=== PATIENT | male | born 1970 | race Hispanic/Latino ===

== ENCOUNTER 2024-11-18 15:35 | Emergency (ER) | payer SELFPAY ==
[2024-11-18] VITALS (10 sets, daily range): BP systolic 113–180; BP diastolic 60–120; PULSE 65–90; RESP 16–18; TEMP 36.6–36.7; O2SAT 95–100
--- NOTE | ~2024-11-18 | CT_ITS ---
CT brain wo con Ordering provider: Emmanuel Montoya MD History: 54 years Male with . AMS, ETOH? . Comparison: None. Technique: CT of the head without contrast. Radiation reduction technique utilized.The dose-length pr oduct was 627.45 mGy-cm. FINDINGS: Artifacts are seen at the posterior fossa area. BRAIN PARENCHYMA AND CSF SPACES: No midline shift, mass effect or hemorrhage. The brain parenchyma a nd CSF spaces are otherwise normal. VISUALIZED PARANASAL SINUSES: Well aerated. MASTOIDS: Well aerated. BONES: Bilateral ethmoid sinus disease. The bones appear intact. SOFT TISSUES: Visualized nasopharynx is normal. Superficial soft tissues are normal. IMPRESSION: No acute intracranial findings. Reviewed, dictated and finalized at location A.
--- NOTE | 2024-11-18 15:39 | ECG_ITS ---
Test Date: 2024-11-18 16:27:44 Measurements Intervals [employer] Rate: 92 P: 60 SD: 166 QRS: 11 QRSD: 118 T: 48 QT: 368 QTc: 457 Interpretive Statements SINUS RHYTHM MODERATE INTRAVENTRICULAR CONDUCTION DELAY [110+ ms QRS DURATION] No previous ECG available for comparison Electronically Signed On 11-18-2024 21:56:46 CDT by Terry Ricardo M.D.
--- NOTE | 2024-11-18 15:48 | ED.ALCOHOL ---
HPI - Alcohol General Chief Complaint: Alcohol Stated Complaint: etoh, agitation History of Present Illness HPI narrative: 54-year-old male presenting to the emergency department in police custody for suspected intoxication and disorderly behavior. Patient initially was found at a semi-truck. Operating motor vehicle and when he got out and was urinating on the ground EMS was called because patient was stumbling around slurring his speech looking intoxicated. Patient refused treatment at that time and went to [facility] where he became unresponsive requiring sternal rub and at that point became very agitated, spitting, cursing and finding staff. Patient was restrained and placed into a spit wheeler and given intramuscular Versed EN route. Patient transport to the emergency department for evaluation. Patient is presently sedated and intoxicated and not able to provide collateral formation. Reportedly he speaks Romanian and does understand [place] and speaks slight [place] but presently not able to be communicated with secondary to intoxication and sedation. He is in 4 point restraints, spit mask in place, in police custody with officer at bedside. No obvious signs of trauma, no signs of visible injury. Related Data Allergies Allergy/AdvReac Type Severity Reaction Status Date / Time Unable to Assess Allergy Verified 11/18/24 15:57 Review of Systems Review of Systems: ROS unobtainable: Yes unobtainable due to medical condition and unobtainable due to mental status Exam Narrative: GENERAL: Intoxicated, sedated, in 4 point restraints, not any acute distress, awake HEAD: [Normocephalic, atraumatic.] EYES: [PERRLA and EOMI.] ENT: Nares clear, no rhinorrhea or epistaxis. Mucous membranes moist. NECK: Supple. CHEST: [Clear to auscultation. No respiratory distress.] HEART: [Regular rate and rhythm]. No murmur heard. [Normal peripheral pulses.] ABDOMEN: [Soft, nondistended], [nontender], [No rigidity or guarding] EXTREMITIES: Normal range of motion. [No edema.] SKIN: Warm, dry, no rash. NEURO: [No focal deficits]. Alert and oriented [x3.] PSYCH: [Normal mood and affect.] Course Vital Signs Vital signs: Vital Signs Pulse Rate 72 11/18/24 15:35 Respiratory Rate 18 11/18/24 15:35 Blood Pressure 136/61 11/18/24 15:35 Pulse Oximetry 100 11/18/24 15:35 Temperature 36.4 C L 11/19/24 01:59 Pulse Rate 73 11/19/24 01:59 Respiratory Rate 16 11/19/24 01:59 Blood Pressure 157/82 H 11/19/24 01:59 Pulse Oximetry 98 11/19/24 01:59 MDM - Alcohol MDM Narrative Medical decision making narrative: 54-year-old male, history of frequent DUIs according to police presenting in police custody for suspected alcohol intoxication. He went to fdc after being picked up at a truck stop after EMS was called and refused. Patient went unresponsive at the [facility] requiring sternal rub where he woke up and became agitated and combative and belligerent. No Narcan was provided and there was no signs of trauma. Patient is presently sedated and intoxicated, not answering questions but is awake and moving all extremities. He is in 4 point restraints. Spit mask in place and police are at bedside. Suspicion presently is for profound alcohol intoxication versus drug use versus less likely metabolic disorder or intracranial pathology such as a stroke or bleed. Given that he is not able to provide collateral formation we will go on the assumption that he is intoxicated but also work him up for other causes. CBC, CMP, urinalysis, urine drug screen, alcohol level, toxicological panel, CT of the head was obtained. Patient placed on monitor and re-evaluated frequently. Presently not any acute distress and has no visible signs of trauma. Patient required 5 mg of IM Haldol for additional restraint after Versed from EMS. Workup shows no leukocytosis or anemia. Normal platelet count. Electrolytes show some dehydration likely secondary to his alcohol intake. Does have an elevated sodium and chloride as well as a minor elevated anion gap secondary to starvation ketosis and alcoholic ketoacidosis. Normal creatinine, normal glucose, normal LFTs. TSH is normal. Urinalysis is normal without infection or blood. Toxicological screening showed no salicylates Tylenol but he does have alcohol level 333. Urine drug screen pending. Patient required additional chemical restraints with 10 mg of intramuscular Zyprexa given significant agitation but he was able to be taken out of restraints. His CT scan of the head shows no acute findings. Patient is still belligerent and intoxicated, police have issued citations and left. They request we contact them prior to discharge for them to arrest him. Patient given a L of LR for his dehydration and will be re-evaluated until sobriety. Patient has been observed here in the emergency department for almost 10 hours. He is clinically sober on my frequent re-evaluations and ambulating around the room. He is no longer agitated or combative in very easily converses in [place]. He is requesting a assembler for puller over hand for his phone and some clothing. Patient did receive IV hydration and has no concerning findings on his repeat evaluations and likely he was very belligerent from alcohol intoxication. Clinically sober and walking in a straight line without any deficits. We did call the police department who stated that they will not be coming back to the hospital to arrest him and that he is free to go and already got a citation. Patient was discharged at this time with instructions on alcohol cessation. Medical Records Attestation: I reviewed the patient's medical records. Lab Data Attestation: I reviewed the patient's lab results. 11/18/24 16:04 11/18/24 16:04 Labs: Lab Results 11/18/24 Range/Units 16:04 WBC 5.2 (4.5-10.0) K/mm3 RBC 4.72 (4.6-6.20) M/mm3 Hgb 14.6 (14.0-18.0) g/dL Hct 43.9 (42.0-52.0) % MCV 93.0 (80-100) fl MCH 30.9 (26-34) pg MCHC 33.3 (32-36) g/dl RDW 13.5 (11.5-14.5) % Plt Count 217 (150-375) k/mm3 MPV 9.0 (7.4-10.4) fl Immature Gran % (Auto) 0.4 (0-0.5) % Neut % (Auto) 62.4 (45.5-73.1) % Lymph % (Auto) 32.1 (18.3-44.2) % [place] % (Auto) 3.5 (2.6-8.5) % Eos % (Auto) 1.2 (0-4.4) % Baso % (Auto) 0.4 (0.2-1.2) % Lymph # (Auto) 1.67 (0.9-3.2) K/mm3 [place] # (Auto) 0.2 (0.1-0.6) K/mm3 Eos # (Auto) 0.1 (0-0.3) K/mm3 Baso # (Auto) 0.0 (0.0-0.1) K/mm3 Abs Immat Gran (auto) 0.02 (0.00-0.031) K/mm3 Absolute Neuts (auto) 3.3 (1.3-6.7) K/mm3 Absolute Nucleated RBC 0.000 (0.0-0.012) K/mm3 Nucleated RBC % 0.0 (0.0-0.2) % Sodium 150 H (137-145) mmol/L Potassium 3.9 (3.4-5.0) mmol/L Chloride 114 H (98-107) mmol/L Carbon Dioxide 20 L (22-30) mmol/L Anion Gap 16 H (4-12) mmol/L BUN 8 L (9-20) mg/dL Creatinine 0.82 (0.7-1.3) mg/dL Estim Creat Clear Calc Not Reportable Estimated GFR > 60 (59 - ) Glucose 120 H (65-110) mg/dL Calcium 8.2 L (8.4-10.2) mg/dL Total Bilirubin 0.3 (0.2-1.3) mg/dL AST 39 (17-59) U/L ALT 34 (6-50) U/L Alkaline Phosphatase 70 (38-126) U/L Total Protein 8.0 (6.3-8.2) g/dL Albumin 4.6 (3.5-5.1) g/dL TSH 0.590 (0.465-4.680) uIU/mL Urine Color Yellow (Yellow) Urine Appearance Clear (Clear) Urine pH 5.0 (5.0-9.0) Ur Specific [place] 1.007 (1.001-1.035) Urine Protein Negative (Negative) mg/dL Urine Glucose (UA) Negative (Negative) mg/dL Urine Ketones Negative (Negative) mg/dL Ur Blood (Man) Negative (Negative) Urine Nitrate Negative (Negative) Urine Bilirubin Negative (Negative) Urine Urobilinogen 0.2 (<2.0) mg/dL Leukocyte Esterase Rfl Negative (Negative) ANA/UL Salicylates < 1.0 L (2-20) mg/dL Urine Opiates Screen Negative (Negative) Urine Methadone Screen Negative (Negative) Acetaminophen < 10 L (10-30) ug/mL Ur Barbiturates Screen Negative (Negative) Ur Phencyclidine Scrn Negative (Negative) Ur Amphetamine Screen Negative (Negative) U Benzodiazepines Scrn Negative (Negative) Urine Cocaine Screen Negative (Negative) U Cannabinoids Screen Negative (Negative) Ethyl Alcohol 333 H* (<10) mg/dL Imaging Data Attestation: I personally reviewed and interpreted this imaging study as follows: My impression: Impressions Head CT 11/18/24 17:45 IMPRESSION: No acute intracranial findings. Radiologist's impression: ITS Impressions Head CT 11/18/24 17:45 IMPRESSION: No acute intracranial findings. Critical Care Time Critical Care Time Critical Care Time: Yes Total Critical Care Time: 45 Restraint Face to Face Eval ED Reason for Restraint Aggressive/Violent Evaluation Findings Date Seen by EDP: 11/18/24 Time Seen by EDP: 15:35 Pt's immediate situation:: Brought in by police for intoxication and belligerent behavior as well as altered mental status. Agitated and combative, spit guard in place, spitting at staff, urinating on himself, requiring multiple police officers for restraints Pt's reaction to intervention:: Calmed down with intramuscular Versed and restraints Pt's med/behavioral condition:: Agitated and combative, spitting, urinating, not cooperative with history or examination, aggressive and verbally loud Restraint or Seclusion Need Need to continue or terminate:: Restraints and in place until patient is cooperative and calm, currently required secondary to significant agitation and belligerent behavior. 1725: Patient re-evaluated after chemical restraint and calm down. Restraints were able to be removed. Discharge Plan Discharge Clinical Impression: Alcoholic intoxication, Agitation, Dehydration Patient Disposition: Home Condition: Stable Instructions: Antibiotic Form, Alcohol Intoxication (ED), Abuse of Alcohol (ED) Additional Instructions: Refrain from drinking any alcohol. You were slightly dehydrated, maintain good oral hydration with water or electrolytes. Follow-up with your regular doctor. Return with any emergent concerns. Do not operate motor vehicles while intoxicated. Patient Language: [place] Follow-up/Referrals: UNKNOWN,DOCTOR [Primary Care Provider] - Time of Disposition: 01:28
[2024-11-18] MEDS: HALOPERIDOL LACTATE 5 MG/ML VIAL IM (15:59)
[2024-11-18 16:18] LABS: Add Urine Microscopic? NO; Appearance Urine Clear (Clear); Bilirubin Urine Negative (Negative); Blood Urine Negative (Negative); Color Urine Yellow (Yellow); Glucose Urine UA Negative (Negative); Ketones Urine Negative (Negative); Leukocyte Esterase Ur Negative LEU/UL (Negative); Nitrate Urine Negative (Negative); Protein Urine Negative (Negative); Specific Grav Ur 1.007 (1.001-1.035); Urobilinogen Urine 0.2 mg/dL (<2.0)
[2024-11-18 16:20] LABS: Basophils Percent Auto 0.4 % (0.2-1.2); Eosinophils Absolute Auto 0.1 K/mm3 (0-0.3); Eosinophils Percent Auto 1.2 % (0-4.4); Hematocrit 43.9 % (42.0-52.0); Hemoglobin 14.6 g/dL (14.0-18.0); Immature Granulocyte Absolute 0.02 K/mm3 (0.00-0.031); Immature Granulocyte Percent A 0.4 % (0-0.5); Lymphocytes Absolute Auto 1.67 K/mm3 (0.9-3.2); Lymphocytes Percent Auto 32.1 % (18.3-44.2); Mean Corpuscular HGB Conc 33.3 g/dl (32-36); Mean Corpuscular Hemoglobin 30.9 pg (26-34); Monocytes Absolute Auto 0.2 K/mm3 (0.1-0.6); Monocytes Percent Auto 3.5 % (2.6-8.5); Neutrophils Absolute Auto 3.3 K/mm3 (1.3-6.7); Neutrophils Percent Auto 62.4 % (45.5-73.1); Platelet Count Result 217 k/mm3 (150-375); Red Blood Count 4.72 M/mm3 (4.6-6.20); Red Cell Distribution Width 13.5 % (11.5-14.5); White Blood Count 5.2 K/mm3 (4.5-10.0)
--- OUTSIDE RECORDS SUMMARY | 2024-11-18 16:33 | XMS_ITS ---
Author Organization [facility] Address [address] [place] [address] Care Team Providers Care Intelligence Analyst Name Role Phone Yaya Solorio Jr Unavailable REASON FOR VISIT referral Encounters Encounter Location Date Provider [place] [facility] [place] [address] [place] [address] [place]/18/2023 Yaya Solorio Plan Of Treatment No Information Progress Notes * Yemi LEWISiDOB:08/1969 (54 yo M)Acc No.[id number]:08/18/2023 Progress Notes Patient: Carolina SHERlobitokasey Provider: Deo Valadez Jr., MD :1970 A ge:53 Y S ex:Male Date:08/18/2023 Address:[address] [place], [place] [id number] Subjective: * Chief Complaints: * 1 . Referral. * HPI: I nterim Care: Have you been to the ER since your last visit? c c 16 Have you been to ER since your last visit? N o Have you been hospitalized since your last visit? H ave you ever been hospitalized since the last visit? N o Have you seen a specialist since your last visit? H ave you seen a specialist since your last visit? N o Have you had any major tests/imaging/procedures done elsewhe? H ave you had any major imaging or procedures doen elsewhere? N o Has there been ANY medication change since your last visit H as there been any medication change since the last visit? N o Provider reviewed Medication change Alexandra ferreira reviewed Medication change Y es ER Visit E R Visit N o Pre-visit planning c ompleted Y es Tdap, smoking/sogi, PCMH, HIV/Hep C screenings, Aren 7, Fpar, depression, colon, audit/dast, flu vaccine * Medical History: Objective: * Vitals: Assessment: Plan: * Treatment: * Billing Information: * Visit Code: * Procedure Codes: * Electronic signature of Will agata Solorio Jr, MD on 11/18/2024 at 05:32 PM EDT Sign off status: Pending * Provider: Deo Valadez Jr., MD Date: 0 08/18/2023 Generated for Kayode renner/Vikas/eTransmnikolas on: 0 11/18/2024 05:32 PM EDT History and Physical Notes * HPI (History of Present Illness) Category Sub-Category Detail Notes Category Not es Interim Care Have you been to the ER since your last visit? cc 16 Have you been to ER since your last visit?: No Have you been hospitalized since your last visit? Have you ever been hospitalized since the last visit?: No Have you seen a specialist since your last visit? Have you seen a specialist since your last visit?: No Have you had any major tests/imaging/procedures done elsewhe Have you had any major imaging or procedures doen elsewhere?: No ER Visit ER Visit: No Has there been ANY medicatio n change since your last visit Has there been any medication change since the last visit?: No Provider reviewed Medication change Provider reviewed Medication change: Yes Pre-visit planning completed: Yes Tdap, smoking /sogi, PCMH, HIV/Hep C screenings, Aren 7, Fpar, depression, colon, audit/dast, flu vaccine Interim Care Pre-visit planning completed:: yes
--- OUTSIDE RECORDS SUMMARY | 2024-11-18 16:33 | XMS_ITS | Clinical Summary ---
Author Organization [facility] Address [address] [place] [address] Care Team Providers Care Help Desk Manager Name Role Phone Pcp, Katja DOWLING Primary Care Provider Unavailabl e Social History Tobacco Use Types Packs/Day Years Used Date Smoking Tobacco: Never Assessed Sex and Gender Information Value Date Recorded Sex Assigned at Not on file Legal Sex Male 2:04 PM EDT Gender Identity Not on file Sexual Orientation Not on file Plan of Treatment Health Maintenance Due Date Last Done Comments Cologuard 1968 Colonoscopy 1968 Colorectal Cancer Screening 1968 FOBT/FIT 1968 HIV Screening 1968 Hepatitis C Screening 1968 Lipid Panel 1968 Sigmoidoscopy 1968 Annual Visit Non Medicare 1971 Annual Visit 1971 Alcohol Screening 1979 Depression Screening 1980 Hepatitis B Vaccines (1 of 3 - 19+ 3-dose series) 1987 Prostate Cancer Screening 2008 Zoster Vaccines (1 of 2) 2018 COVID-19 Vaccine (2 - 2023-2 5 season) 2024 04/30/2021 Influenza Vaccine (#1) 2024 05/06/2021 DTaP,Tdap,and Td Vaccines (2 - Td or Tdap) 10/26/2026 10/26/2016 MMR Vaccines Completed 05/06/2021 HIB Vaccines Aged Out No longer eligi ble based on patient's age to complete this topic Hepatitis A Vaccines Aged Out No long er eligible based on patient's age to complete this topic IPV Vaccines Aged Out No longer eligi ble based on patient's age to complete this topic Meningococcal Vaccine Aged Out No risa juhi eligible based on patient's age to complete this topic Pneumococcal Vaccine Aged Out No long er eligible based on patient's age to complete this topic Care Teams Help Desk Manager Relationship Specialty Start Date End Date Katja Avila MD PCP - General Family Medicine 02/04/22
--- OUTSIDE RECORDS SUMMARY | 2024-11-18 16:33 | XMS_ITS | Patient Health Record ---
Author Organization [facility] Pract [facility] Address [address] [place] [address] Reason For Referral No Information Plan Of Treatment No Information
--- OUTSIDE RECORDS SUMMARY | 2024-11-18 16:33 | XMS_ITS | Referral Summary ---
Author Organization [facility] Address [address] [place] [address] Care Team Providers Care Machine Grainer Name Role Phone Katja Avila MD Primary Care Provider Unavailabl e Social History Tobacco Use Types Packs/Day Years Used Date Smoking Tobacco: Never Assessed Sex and Gender Information Value Date Recorded Sex Assigned at Not on file Legal Sex Male 2:04 PM EDT Gender Identity Not on file Sexual Orientation Not on file Plan of Treatment Not on file Care Teams Machine Grainer Relationship Specialty Start Date End Date Katja Avila MD PCP - General Family Medicine 02/04/22
[2024-11-18 16:38] LABS: Alanine Aminotransferase 34 U/L (6-50); Albumin Level 4.6 g/dL (3.5-5.1); Alkaline Phosphatase 70 U/L (38-126); Anion Gap 16 mmol/L (4-12); Aspartate Amino Transferase 39 U/L (17-59); Bilirubin,Total 0.3 mg/dL (0.2-1.3); Blood Urea Nitrogen 8 mg/dL (9-20); Calcium 8.2 mg/dL (8.4-10.2); Carbon Dioxide 20 mmol/L (22-30); Chloride 114 mmol/L (98-107); Estimated Glomerular Filt Rate > 60; Glucose 120 mg/dL (65-110); Potassium 3.9 mmol/L (3.4-5.0); Sodium 150 mmol/L (137-145)
[2024-11-18 16:41] LABS: Acetaminophen < 10 ug/mL (10-30); Salicylate < 1.0 mg/dL (2-20)
[2024-11-18 16:50] LABS: Ethanol 333 mg/dL (<10)
[2024-11-18] MEDS: OLANZapine 10 MG INJ VIAL IM (17:43)
[2024-11-18] MEDS: WATER, STERILE FOR INJECTION 10 ML VIAL XX (17:43)
--- NOTE | 2024-11-18 17:50 | PC.NURSE ---
1725 RN took pt to CAT Scan. Pt became agitated, yelling, attempting to get off stretcher. Dr. Montoya informed, pt returned to room assisted to bathroom, attempting to leave room, pt redirected to stretcher.
--- NOTE | 2024-11-18 18:02 | PC.NURSE ---
Unable to obtain CIWA score pt uncooperative & remains intoxicated
[2024-11-18] MEDS: LACTATED RINGERS 1,000 ML 999 ML IV CONT (18:25)
--- NOTE | 2024-11-18 18:45 | PC.NURSE ---
Pt refusing to keep cardiac monitors & pulse ox intact. Continues to pull off
[2024-11-18 19:08] LABS: Amphetamine Screen Urine Negative (Negative); Barbiturate Screen Urine Negative (Negative); Benzodiazepines Screen Urine Negative (Negative); Cannabinoid Screen Urine Negative (Negative); Cocaine Screen Urine Negative (Negative); Methadone Screen Urine Negative (Negative); Opiate Screen Urine Negative (Negative); Phencyclidine Screen Urine Negative (Negative)
--- NOTE | 2024-11-18 20:30 | PC.NURSE ---
This RN noticed pt was sitting on bedside chair urinating. Pt belongings were on chair. This RN gave pt a urinal to use and pt took urinal after swatting at RN. RN and antonio Honeycutt cleaned up floor and cleaned pt bed. Pt now resting on stretcher and this RN plugged Fall alarm in. EDP notified.
--- NOTE | 2024-11-18 22:38 | PC.NURSE ---
RN keeps attempting to hook pt up to monitor and pt keeps removing.
--- NOTE | 2024-11-19 01:08 | PC.NURSE ---
[facility] CALLED AT [phone] ON 11/19/2024 TO NOTIFY THEM THAT THEY COULD COME PICK HIM UP PER EDP ORDER FROM DR. MYLES. SPOKE WITH DISPATCH WHO TOLD US THAT THEY WERE NO LONGER GOING TO COME GET HIM, AND WE CAN LET HIM GO.
[2024-11-19 01:59] VITALS: BP 157/82; PULSE 73; RESP 16; TEMP 36.4; O2SAT 98
--- NOTE | 2024-11-19 02:01 | PC.NURSE ---
Pt given scrubs to go home in.
== END 2024-11-19 02:26 | disposition home or self-care (01) ==
PROVIDERS: Emergency Provider Student in an Organized Health Care Education/Training Program
DX: F10.129 Alcohol abuse with intoxication, unspecified (principal); Y90.8 Blood alcohol level of 240 mg/100 ml or more; R45.1 Restlessness and agitation; E86.0 Dehydration
CPT/HCPCS: 36415; 70450; 80053; 80143; 80179; 80307; 81003; 82077; 84443; 85025; 93005; 96360; 96372; 99284; J1630; J2359; J7120

== ENCOUNTER 2024-11-26 15:00 | Emergency (ER) | payer SELFPAY ==
--- OUTSIDE RECORDS SUMMARY | 2024-11-26 15:02 | XMS_ITS ---
Author Organization [facility] Address [address] [place] [address] Care Team Providers Care Deli/Bakery Associate Name Role Phone Yaya Solorio Jr Unavailable [phone] REASON FOR VISIT referral Encounters Encounter Location Date Provider Diagnosis [facility] [place] [address] [place] [address] 08/18/2023 Yaya Solorio Plan Of Treatment No Information Progress Notes * DEBBIE CarolinalobitoiDOB:08/1969 (54 yo M)Acc No.[id number]:08/18/2023 Progress Notes Patient: Carolina SHERlobitokasey Provider: Deo Valadez Jr., MD :1970 A ge:53 Y S ex:Male Date:08/18/2023 Address:[address] [place], [place] [id number] Subjective: * Chief Complaints: * 1 . [...] you had any major tests/imaging/procedures done elsewhe H ave you had any major imaging [...] of Will agata Solorio Jr, MD on 11/26/2024 at 04:02 PM EDT Sign off status: Pending * Provider: Deo Valadez Jr., MD Date: 0 08/18/2023 Generated for Kayode renner/Vikas/eTransmnikolas on: 0 11/26/2024 04:02 PM EDT History and Physical Notes * [...]
--- OUTSIDE RECORDS SUMMARY | 2024-11-26 15:02 | XMS_ITS | Referral Summary ---
Author Organization [facility] Address [address] [place] [address] Care Team Providers Care Retail Loss Prevention Investigator Name Role Phone Katja Avila MD Primary Care Provider Unavailabl e Social History Tobacco Use Types Packs/Day Years Used Date Smoking Tobacco: Never Assessed Sex and Gender Information Value Date Recorded Sex Assigned at Not on file Legal Sex Male 2:04 PM EDT Gender Identity Not on file Sexual Orientation Not on file Plan of Treatment Not on file Care Teams Retail Loss Prevention Investigator Relationship Specialty Start Date End Date Katja Avila MD PCP - General Family Medicine 02/04/22
--- OUTSIDE RECORDS SUMMARY | 2024-11-26 15:02 | XMS_ITS | Patient Health Record ---
Author Organization [facility] Address [address] [place] [address] Reason For Referral No Information Plan Of Treatment No Information
--- OUTSIDE RECORDS SUMMARY | 2024-11-26 15:02 | XMS_ITS | Clinical Summary ---
Author Organization [facility] Address [address] [place] [address] Care Team Providers Care Principal Cloud Architect Name Role Phone Pcp, Katja DOWLING Primary [...] age to complete this topic Care Teams Principal Cloud Architect Relationship Specialty Start Date End Date Katja Avila MD PCP - General Family Medicine 02/04/22
[2024-11-26 15:27] VITALS: BP 166/107; PULSE 116; RESP 20; TEMP 36.4; O2SAT 98
--- NOTE | 2024-11-26 16:23 | PC.NURSE ---
pt walking in and out of department
--- NOTE | 2024-11-26 17:00 | PC.NURSE ---
pt called to have repeat vitals and no answer
--- NOTE | 2024-11-26 18:10 | PC.NURSE ---
Pt not in waiting room, did not notify behavioral health tech declined to be seen and exit was not witnessed.
--- OUTSIDE RECORDS SUMMARY | 2024-11-26 18:29 | XMS_ITS | Clinical Summary ---
Author Organization [facility] Address [address] [place] [address] Care Team Providers Care Papeterie Table Assembler Name Role Phone Pcp, Katja DOWLING Primary [...] age to complete this topic Care Teams Papeterie Table Assembler Relationship Specialty Start Date End Date Katja Avila MD PCP - General Family Medicine 02/04/22
--- OUTSIDE RECORDS SUMMARY | 2024-11-26 18:29 | XMS_ITS | Referral Summary ---
Author Organization [facility] Address [address] [place] [address] Care Team Providers Care Outside Machinist Helper Name Role Phone Katja Avila MD Primary Care Provider Unavailabl e Social History Tobacco Use Types Packs/Day Years Used Date Smoking Tobacco: Never Assessed Sex and Gender Information Value Date Recorded Sex Assigned at Not on file Legal Sex Male 2:04 PM EDT Gender Identity Not on file Sexual Orientation Not on file Plan of Treatment Not on file Care Teams Outside Machinist Helper Relationship Specialty Start Date End Date Katja Avila MD PCP - General Family Medicine 02/04/22
== END 2024-11-26 18:43 | disposition left against medical advice (07) ==
DX: F32.A Depression, unspecified (principal)
CPT/HCPCS: 99199